=== PATIENT | male | born 1940 | race Caucasian/White ===

== ENCOUNTER → 2017-02-02 | Outpatient (CLI) | payer OTHER, MEDICARE | LOC: FIMAGING 11:55 | PROVIDERS: ATTEND Internal Medicine Geriatric Medicine | DX: M51.36 Other intervertebral disc degeneration, lumbar region (principal); M48.06 Spinal stenosis, lumbar region; M99.73 Connective tissue and disc stenosis of intervertebral foramina of lumbar region; R33.9 Retention of urine, unspecified ==

== ENCOUNTER 2017-02-16 05:43 | Inpatient (IN) | payer OTHER, MEDICARE ==
--- NOTE | 2017-02-16 05:57 | PDHPUP ---
History & Physical Update H&P update statement: This history and physical update is based on an assessment of the patient which was completed after admission or registration (within 24 hours), but prior to the surgery/procedure. H&P update: H&P reviewed & patient examined, no change in patient's condition since H&P completed
[2017-02-16] MEDS ORDERED: LR 1,000 ML IV ONE (06:22)
[2017-02-16] MEDS ORDERED: LIDOCAINE 1% 2 ML INJ ID PRN (06:22)
[2017-02-16] MEDS ORDERED: THROMBIN (BOVINE) 5,000 UNIT VIAL TP ONE (06:45)
[2017-02-16] MEDS ORDERED: BUPIVACAINE 0.25% 30 ML SDV ONE (06:45)
[2017-02-16] MEDS ORDERED: MIDAZOLAM 2 MG/2 ML VIAL ONE (06:46)
[2017-02-16] MEDS ORDERED: BACITRACIN 50,000 UNITS/10 ML SYR IRR ONE ×3 (06:47→11:06)
[2017-02-16] MEDS ORDERED: BUPIVACAINE/EPI 0.25% 30 ML SDV ONE (06:47)
[2017-02-16] MEDS ORDERED: MIDAZOLAM 2 MG/2 ML VIAL IVP ONE (06:49)
[2017-02-16] MEDS ORDERED: fentaNYL 100 MCG/2 ML INJ IVP PRN ×2 (06:51→12:00)
[2017-02-16] MEDS ORDERED: HYDROmorphONE/DILAUDID 1 MG/ML SYR IVP PRN ×2 (06:51→12:00)
[2017-02-16] MEDS ORDERED: LR 500 ML IV PRN ×2 (06:51→12:00)
[2017-02-16] MEDS ORDERED: ONDANSETRON 4 MG/2 ML VIAL IVP PRN ×3 (06:51→13:02)
[2017-02-16] MEDS ORDERED: ALBUTEROL 3 ML DEYVIAL IH PRN ×2 (06:51→12:00)
[2017-02-16] MEDS ORDERED: NALOXONE HCL 0.4 MG/ML INJ IVP PRN ×3 (06:51→13:02)
--- NOTE | 2017-02-16 06:51 | PDANEPAE ---
ANE History of Present Illness 76yo M for Lumbar Fusion ANE Past Medical History - Cardiovascular History Hx Hypertension: Yes Hx Arrhythmias: No Hx Chest Pain: No Hx Coronary Artery / Peripheral Vascular Disease: No Hx CHF / Valvular Disease: No Hx Palpitations: No - Pulmonary History Hx COPD: No Hx Asthma/Reactive Airway Disease: No Hx Recent Upper Respiratory Infection: No Hx Oxygen in Use at Home: No - Neurologic History Hx Cerebrovascular Accident: Yes Hx Seizures: No - Endocrine History Hx Diabetes: No - Renal History Hx Renal Disorders: Yes - Liver History Hx Hepatic Disorders: No - Neurological & Psychiatric Hx Hx Neurological and Psychiatric Disorders: No - Cancer History Hx Cancer: No - Congenital Disorder History Hx Congenital Disorders: No - GI History Hx Gastrointestinal Disorders: Yes - Chronic Pain History Chronic Pain: Yes (BACK) ANE Review of Systems Review of systems is: negative - Exercise capacity METS (RN): 4 METS ANE Patient History - Allergies Allergies/Adverse Reactions: codeine [Codeine] Allergy (Unknown, Verified 05/05/10 15:44) Vomiting - Home Medications Home Medications: Aspirin [Aspirin 81mg (*)] 81 mg PO DAILY 02/09/17 [Last Taken 02/06/17] Clopidogrel Bisulfate [Plavix (*)] 75 mg PO DAILY 02/09/17 [Last Taken 02/15/17] DULoxetine [Cymbalta 30 MG (*)] 30 mg PO BID@,02/09/17 [Last Taken 02/15/17 ] Diclofenac Sodium [Voltaren 75 MG (*)] 75 mg PO BID 02/09/17 [Last Taken ] Gabapentin [Neurontin 300 MG (*)] 300 mg PO BID@,02/09/17 [Last Taken 02/15] Gabapentin [Neurontin 300 MG (*)] 600 mg PO HS 02/09/17 [Last Taken 02/15/17] Losartan/Hydrochlorothiazide [Losartan-Hctz 100-25 Mg Tab] 1 each PO DAILY 02/09 [Last Taken 02/15/17] Multivitamins [Multivitamin (*)] 1 each PO DAILY 02/09/17 [Last Taken 02/14/17] Simvastatin [Zocor] 20 mg PO HS 02/09/17 [Last Taken 02/15/17] - NPO status NPO Since - Liquids (Date): 02/15/17 NPO Since - Liquids (Time): 22:30 NPO Since - Solids (Date): 02/15/17 NPO Since - Solids (Time): 14:00 - Smoking Hx Smoking Status: Never smoked - Family Anes Hx Family Hx Anesthesia Complications: DAUGHTER- VOMITING ANE Labs/Vital Signs - Vital Signs Blood Pressure: 144/83 Heart Rate: 70 Respiratory Rate: 16 O2 Sat (%): 92 Height: 177.8 cm Weight: 98.883 kg ANE Physical Exam - Airway Mallampati Score: Class 2 Mouth exam: normal dental/mouth exam, poor dentition - Pulmonary Pulmonary: no respiratory distress - Cardiovascular Cardiovascular: regular rate and rhythym - ASA Status ASA Status: II ANE Anesthesia Plan Anesthesia Plan: general endotracheal anesthesia
[2017-02-16] MEDS ORDERED: ceFAZolin 2 GM/DEXTROSE 100 ML IV ONE (06:58)
[2017-02-16] MEDS ORDERED: PROPOFOL/EMULSION 500 MG/50 ML BOTTLE IV ONE ×7 (06:59→11:15)
[2017-02-16] MEDS ORDERED: CEFAZOLIN 2 GM/DEXTROSE/100 ML BAG IV ONE (06:59)
[2017-02-16] MEDS ORDERED: REMIFENTANIL HCL 1 MG VIAL ONE ×6 (06:59→11:52)
[2017-02-16] MEDS ORDERED: CITRATE DEXTROSE SOLN 500 ML BAG ONE ×2 (07:00→10:05)
[2017-02-16] MEDS ORDERED: DEXAMETHASONE 4 MG/ML VIAL ONE ×2 (07:08)
[2017-02-16] MEDS ORDERED: HYDROmorphONE/DILAUDID 2 MG/ML INJ ONE (07:10)
[2017-02-16] MEDS ORDERED: epHEDrine SULFATE 10 MG/ML SYR ONE ×2 (07:59→08:22)
[2017-02-16] MEDS ORDERED: morphINE PF 5 MG/10 ML INJ IT ONE (08:00)
[2017-02-16] MEDS ORDERED: fentaNYL 100 MCG/2 ML INJ IT ONE (08:00)
[2017-02-16] MEDS ORDERED: ONDANSETRON 4 MG/2 ML VIAL ONE (08:32)
[2017-02-16] MEDS ORDERED: NON-FORMULARY NEW DRUG (Losartan/Hydrochlorothiazide [Losartan-Hctz 100-25 Mg Tab] 1 EACH) PO SCH (09:00)
[2017-02-16] MEDS ORDERED: ceFAZolin 1 GM VIAL ONE (11:26)
[2017-02-16] MEDS ORDERED: morphINE PF 10 MG/10 ML INJ ONE (11:39)
[2017-02-16] MEDS ORDERED: fentaNYL 100 MCG/2 ML INJ ONE ×2 (11:40→13:47)
[2017-02-16] MEDS ORDERED: DEXAMETHASONE 4 MG/ML VIAL IVP PRN (12:00)
[2017-02-16] MEDS ORDERED: ONDANSETRON DISINTEGRATING 4 MG TAB PO PRN (13:02)
[2017-02-16] MEDS ORDERED: MAGNESIUM HYDROXIDE 30 ML UDCUP PO PRN (13:02)
[2017-02-16] MEDS ORDERED: BISACODYL 10 MG SUPP PR PRN (13:02)
[2017-02-16] MEDS ORDERED: diphenhydrAMINE 25 MG CAP PO PRN (13:02)
[2017-02-16] MEDS ORDERED: LACTULOSE 20 GM/30 ML UDCUP PO PRN (13:02)
[2017-02-16] MEDS ORDERED: HYDROmorphONE/DILAUDID 6 MG/30 ML PCA IV PRN (13:02)
--- NOTE | 2017-02-16 13:03 | POSTANESTH ---
Post Anesthetic Evaluation Cardiovascular Status: Normal, Stable Respiratory Status: Normal, Stable Level of Consciousness/Mental Status: Can Participate in Eval, Alert and Oriented Pain Control: Adequate, Prn Tx Ordered Nausea/Vomiting Control: Adequate, Prn Tx Ordered Complications Possibly Related to Anesthesia: None Noted
--- NOTE | 2017-02-16 13:10 | SOAPPROG ---
SOAP Progress Note Assessment/Plan: Assessment: 76 yo M sp L1-S2 fusion Plan: stable to 3N PT/OT Roger Jacome to fit LSO brace please call with neuro changes 02/16/17 13:07 Subjective: + back pain, no leg pain Objective: Vital Signs Temp Pulse Resp BP Pulse Ox 36.7 C 70 16 144/83 H 92 02/16/17 06:24 02/16/17 06:51 02/16/17 06:51 02/16/17 06:51 02/16/17 06:51 Laboratory Results 02/16/17 07:30 awake, alert PERRL, no facial droop JESS x 4 + light touch ICD10 Worksheet Patient Problems: Problems Problem Status Onset Fusion of spine of lumbar region Acute - ICD10 Problem Qualifiers (1) Fusion of spine of lumbar region
[2017-02-16] MEDS ORDERED: HYDROmorphONE/DILAUDID 1 MG/ML SYR ONE (13:47)
[2017-02-16] MEDS: GABAPENTIN 300 MG CAP PO SCH ×3 (14:42→21:51)
[2017-02-16] MEDS: DULoxetine 30 MG CAP PO SCH ×2 (14:42→15:03)
[2017-02-16] MEDS: ACETAMINOPHEN 500 MG TAB PO SCH ×2 (15:03→21:50)
[2017-02-16] MEDS: ceFAZolin 2 GM/DEXTROSE 100 ML IV SCH ×2 (15:03→21:53)
[2017-02-16] MEDS: oxyCODONE IR 5 MG TAB PO PRN ×3 (15:10→21:50)
[2017-02-16] MEDS: METHOCARBAMOL 750 MG TAB PO PRN (15:10)
--- NOTE | 2017-02-16 16:27 | GOP ---
[f rep st] OPERATIVE REPORT DATE OF OPERATION: 02/16/2017 SURGEON: Freddy Rain MD TESTING TECH: ANASTASIA Escobar ANESTHESIA: General endotracheal. PREOPERATIVE DIAGNOSIS: Severe multilevel lumbar degenerative joint disease with severe spinal sten osis and lateral recess impingement, and loss of normal sagittal alignment. Intractable back pain a nd jkuds-rfkdobk-xqxd-left lower extremity radicular pain. Intractable neurogenic claudication. Fa iled conservative care. High risk surgical candidate given age of 76 years, comorbidities and requi red surgical intervention. POSTOPERATIVE DIAGNOSIS: Severe multilevel lumbar degenerative joint disease with severe spinal sonia nosis and lateral recess impingement, and loss of normal sagittal alignment. Intractable back pain and dkwst-medbrhu-yphn-left lower extremity radicular pain. Intractable neurogenic claudication. F katherine conservative care. High risk surgical candidate given age of 76 years, comorbidities and requ ired surgical intervention. PROCEDURE PERFORMED: Right-sided L2-3, L3-4, L4-5 and L5-S1 far lateral transpedicular decompressio n with L1 through S1 posterior segmental (pedicle screw and axial device) fixation and posterolatera l fusion with local autograft, bone morphogenic protein and morselized allograft. L2-3, L3-4, L4-5, and L5-S1 posterior/transforaminal lumbar interbody fusion with 2 structural PEEK interbody spacers , local autograft and bone morphogenic protein. Use of intraoperative microscopy, fluoroscopy and c [email or web address] volumetric stereotactic navigation with intraoperative neurophysiologic testing. Injection of intrathecal narcotic analgesics in subcutaneous and intramuscular tissues for local anesthesia fo r postoperative pain control. FINDINGS: ESTIMATED BLOOD LOSS: 500 cc. INDICATIONS: The patient is a 76-year-old man with intractable low back pain and yceah-cfsilgh-zhsh -left lower extremity radicular and neurogenic claudication symptoms secondary to multilevel severe degenerative joint disease, spinal stenosis, lateral recess impingement and loss of normal sagittal alignment. He has failed extensive conservative care and presents now for surgical decompression an d stabilization. DESCRIPTION OF PROCEDURE: After informed consent was obtained, the patient was taken to the operati ng room and placed in the prone position on the Mehul table. The thoracolumbosacral areas were pr epped and draped in sterile fashion. After fluoroscopic localization of the correct levels, the sub cutaneous and intramuscular tissues were infiltrated with local anesthesia. A midline linear incisi on was then created from approximately L2 to S1. This was carried down to the fascial layer, which was incised using monopolar electrocautery and carried in a subperiosteal plane along the spinous pr ocesses and lamina bilaterally. Intraoperative fluoroscopy was again utilized to verify the correct levels. Following this, the dissection was carried out over the facet joints. It was noted that t he L1-2 level had very large facets and looking at the MRI, I felt that the patient would likely be back for surgery in a very short period and thought that he did not need a decompression there, but it was probably in his best interest to extend the fusion up 1 level and do a posterolateral fusion there without any decompression or transforaminal approach. The dissection was therefore carried up to L1. Following this, the microscope was brought in and right-sided far lateral transpedicular decompressi ons were performed with complete unroofing of the facet joint and neural foramen at L2-3, L3-4, L4-5 , and L5-S1. Following adequate decompression, the [employer] Neuronavigational system was brought in and using computer volumetric stereotactic navigation, pedicle screws were placed bilaterally at L1, L2, L3, L4, L5 and S1. I also placed a screw on the right side at S2 in order to minimize the pote ntial for hardware pullout/failure at the lower level. Following this, individual short rods were p laced first at L5-S1, then at L4-5, then at L3-4, then at L2-3 with a slight amount of distraction a t each individual level serially. Diskectomies were performed at each level with complete removal o f the disk space in preparation of the endplates and placement of 2 structural PEEK interbody spacer s, local autograft and bone morphogenic protein at each level for L2-3, L3-4, L4-5, and L5-S1 paint tester ior/transforaminal lumbar interbody fusions. These small rods were then removed and appropriate-felicita gth rods extending from L1 to S2 on the right and L1 to S1 on the left were placed and secured with the maximal amount of lordosis in order to hopefully prevent or minimize flat back syndrome and othe r problems. A slight amount of compression was created across the interspaces with TLIF procedures in order to facilitate bony union and to minimize the potential for posterior graft migration. Following this, the wound was copiously irrigated with antibiotic irrigation. Meticulous hemostasis was achieved. The remaining lamina and facet joints primarily on the left were then extensively de corticated from L1 to S1, and on the right at L1-2 and the local autograft from the facetectomies al heather with bone morphogenic protein and morselized allograft was placed out laterally from L1 through S1 for posterolateral fusion. Axial device was then placed at the L1-2 level and L5-S1 levels in or carlos to, again, minimize the potential for hardware pullout and failure, as well as transitional/junc tional kyphosis. Then, 200 mcg of Duramorph along with 50 mcg of fentanyl was injected intrathecall y. The subcutaneous and intramuscular tissues were re-infiltrated with local anesthesia. A drain w as placed. The wound was closed in a layered fashion using interrupted Vicryl sutures followed by S renata-Strips on the skin. COMPLICATIONS: None. DISPOSITION: The patient was extubated and transferred to the recovery room in stable condition. /[id number]/MODL
[2017-02-16] MEDS: POLYETHYLENE GLYCOL 3350 17 GM PKT PO SCH ×2 (18:09→21:54)
[2017-02-16] MEDS ORDERED: NON-FORMULARY NEW DRUG (Simvastatin [Zocor] 20 MG) PO SCH ×2 (21:00)
[2017-02-16] MEDS: ATORVASTATIN CALCIUM 10 MG TAB PO SCH (21:49)
[2017-02-16] MEDS: FAMOTIDINE 20 MG TAB PO SCH (21:51)
[2017-02-16] MEDS: SENNOSIDES/DOCUSATE SODIUM TAB PO SCH (21:52)
[2017-02-16] MEDS: morphINE SR 30 MG TAB PO SCH (21:52)
[2017-02-17 04:45] LABS: ABSOLUTE IMMATURE GRANULOCYTES 0.18 10^3/uL (0.00-0.10); ADD DIFF? NO; ADD MORPH? NO; ADD SCAN? NO; ATYPICAL LYMPHOCYTE FLAG 0 (0-99); FRAGMENT RBC FLAG 0 (0-99); HEMATOCRIT 32.8 % (40.0-51.0); HEMOGLOBIN 11.4 g/dL (13.7-17.5); LEFT SHIFT FLG 0 (0-99); LIPEMIA HEMOLYSIS FLAG 90 (0-99); MEAN CELL HEMOGLOBIN 29.1 pg (27.9-34.1); MEAN CELL HEMOGLOBIN CONCENTR. 34.8 g/dL (32.4-36.7); MEAN CELL VOLUME 83.7 fL (81.5-99.8); MEAN PLATELET VOLUME 10.4 fL (8.7-11.7); PLATELET CLUMPS FLAG 0 (0-99); PLATELET COUNT 234 10^3/uL (150-400); RED BLOOD CELL COUNT 3.92 10^6/uL (4.40-6.38); RED CELL DISTRIBUTION WIDTH 11.6 % (11.5-15.2)
[2017-02-17 04:57] LABS: ANION GAP 8 mEq/L (8-16); CALCIUM 8.5 mg/dL (8.5-10.4); CARBON DIOXIDE 27 mEq/l (22-31); CHLORIDE 94 mEq/L (97-110); GLOMERULAR FILTRATION RATE > 60; GLUCOSE 140 mg/dL (70-100); POTASSIUM 4.8 mEq/L (3.5-5.2); SODIUM 129 mEq/L (134-144)
[2017-02-17] MEDS: ACETAMINOPHEN 500 MG TAB PO SCH ×3 (05:21→21:00)
[2017-02-17] MEDS: oxyCODONE IR 5 MG TAB PO PRN ×3 (07:20→13:18)
--- NOTE | 2017-02-17 08:41 | SOAPPROG ---
MINNA Progress Note Assessment/Plan: Assessment: POD#1 s/p L1-S1 PSF, L2-S1 TLIF Plan: - really doing well, tolerating oral pain meds - PT/OT, OOB today, probably will need rehab because his is disabled - CARLOS 985, will leave in place - lovenox for DVT ppx - will get xrays today to document hardware 02/17/17 08:38 Subjective: no major complaints, pain well controlled Objective: Vital Signs Temp Pulse Resp BP Pulse Ox 36.9 C 80 16 128/84 H 90 L 02/17/17 07:57 02/17/17 07:57 02/17/17 07:57 02/17/17 07:57 02/17/17 07:57 Laboratory Results 02/17/17 04:23 02/17/17 04:23 02/16/17 02/17/17 02/18/17 05:59 05:59 05:59 Intake Total 2450 Output Total 2735 Balance -285 AAOx3, strength full, sensation normal, dressings c/d/i - Pending Discharge Pending Discharge Within 24 Hours: No Pending Discharge Within 48 Hours: Yes Pending Discharge Date: 02/19/17 Pending Discharge Time: 11:00 ICD10 Worksheet Patient Problems: Problems Problem Status Onset Fusion of spine of lumbar region Acute
[2017-02-17] MEDS: POLYETHYLENE GLYCOL 3350 17 GM PKT PO SCH ×3 (09:07→21:03)
[2017-02-17] MEDS: LOSARTAN/HCTZ 50/12.5 1 TAB PO SCH (09:07)
[2017-02-17] MEDS: SENNOSIDES/DOCUSATE SODIUM TAB PO SCH ×2 (09:08→20:53)
[2017-02-17] MEDS: DULoxetine 30 MG CAP PO SCH ×2 (09:09→13:18)
[2017-02-17] MEDS: GABAPENTIN 300 MG CAP PO SCH ×3 (09:09→20:51)
[2017-02-17] MEDS: morphINE SR 30 MG TAB PO SCH ×2 (09:09→20:51)
[2017-02-17] MEDS: FAMOTIDINE 20 MG TAB PO SCH ×2 (09:09→20:52)
[2017-02-17] MEDS: ENOXAPARIN 40 MG/0.4 ML SYR SC SCH (09:09)
[2017-02-17] MEDS: NS 1,000 ML IV SCH (16:01)
[2017-02-17] MEDS: METHOCARBAMOL 750 MG TAB PO PRN (18:42)
[2017-02-17] MEDS: ATORVASTATIN CALCIUM 10 MG TAB PO SCH (21:01)
[2017-02-18] MEDS: oxyCODONE IR 5 MG TAB PO PRN ×3 (04:26→16:30)
[2017-02-18 05:25] LABS: ANION GAP 9 mEq/L (8-16); CALCIUM 8.6 mg/dL (8.5-10.4); CARBON DIOXIDE 27 mEq/l (22-31); CHLORIDE 94 mEq/L (97-110); CREATININE 0.9 mg/dL (0.7-1.3); GLOMERULAR FILTRATION RATE > 60; GLUCOSE 150 mg/dL (70-100); POTASSIUM 3.7 mEq/L (3.5-5.2); SODIUM 130 mEq/L (134-144)
[2017-02-18] MEDS: ACETAMINOPHEN 500 MG TAB PO SCH ×3 (05:53→20:50)
[2017-02-18] MEDS: ENOXAPARIN 40 MG/0.4 ML SYR SC SCH (08:23)
[2017-02-18] MEDS: DULoxetine 30 MG CAP PO SCH ×2 (08:25→14:09)
[2017-02-18] MEDS: morphINE SR 30 MG TAB PO SCH ×2 (08:25→20:51)
[2017-02-18] MEDS: GABAPENTIN 300 MG CAP PO SCH ×3 (08:25→20:51)
[2017-02-18] MEDS: POLYETHYLENE GLYCOL 3350 17 GM PKT PO SCH ×3 (08:26→20:52)
[2017-02-18] MEDS: SENNOSIDES/DOCUSATE SODIUM TAB PO SCH ×2 (08:26→20:52)
[2017-02-18] MEDS: FAMOTIDINE 20 MG TAB PO SCH ×2 (08:26→20:51)
[2017-02-18] MEDS: LOSARTAN/HCTZ 50/12.5 1 TAB PO SCH (08:33)
[2017-02-18] MEDS ORDERED: NS 1,000 ML IV ONE (09:56)
--- NOTE | 2017-02-18 09:56 | SOAPPROG ---
MINNA Progress Note Assessment/Plan: Assessment: POD#2 s/p L1-S1 PSF, L2-S1 TLIF Plan: - continues to do well but more pain today - became hypotensive yesterday with oxycodone, i suspect he was just hypovolemic , will give a fluid bolus again and would try oxycodone again today for pain, if not tolerating, we can try a different medication regimen - PT/OT, OOB today, probably will need rehab because his is disabled - mild hyponatremia - sodium 130, will repeat BMP tomorrow - CARLOS 110, will leave in place - lovenox for DVT ppx - xrays show intact hardware with good alignment 02/17/17 08:38 02/18/17 09:53 02/18/17 09:55 Subjective: c/o back pain, no leg pain Objective: Vital Signs Temp Pulse Resp BP Pulse Ox 36.8 C 71 16 102/67 98 02/18/17 07:53 02/18/17 07:53 02/18/17 07:53 02/18/17 07:53 02/18/17 07:53 Laboratory Results 02/17/17 04:23 02/18/17 04:21 02/17/17 02/18/17 02/19/17 05:59 05:59 05:59 Intake Total 2450 1600 300 Output Total 2735 510 300 Balance -285 1090 0 AAOx3, full strength/sensation, dressings c/d/i - Pending Discharge Pending Discharge Within 24 Hours: No Pending Discharge Within 48 Hours: Yes Pending Discharge Date: 02/20/17 Pending Discharge Time: 11:00 ICD10 Worksheet Patient Problems: Problems Problem Status Onset Fusion of spine of lumbar region Acute
[2017-02-18] MEDS: NS 1,000 ML IV SCH ×2 (11:30→20:49)
[2017-02-18] MEDS: ATORVASTATIN CALCIUM 10 MG TAB PO SCH (20:50)
[2017-02-19] MEDS: ACETAMINOPHEN 500 MG TAB PO SCH ×3 (04:54→21:31)
[2017-02-19] MEDS: oxyCODONE IR 5 MG TAB PO PRN ×3 (04:54→12:48)
[2017-02-19] MEDS: NS 1,000 ML IV SCH (04:54)
[2017-02-19 05:27] LABS: ANION GAP 5 mEq/L (8-16); CARBON DIOXIDE 29 mEq/l (22-31); CHLORIDE 98 mEq/L (97-110); CREATININE 0.9 mg/dL (0.7-1.3); GLOMERULAR FILTRATION RATE > 60; GLUCOSE 124 mg/dL (70-100); POTASSIUM 3.8 mEq/L (3.5-5.2); SODIUM 132 mEq/L (134-144)
[2017-02-19] MEDS: SENNOSIDES/DOCUSATE SODIUM TAB PO SCH ×2 (07:49→19:56)
[2017-02-19] MEDS: ENOXAPARIN 40 MG/0.4 ML SYR SC SCH (07:49)
[2017-02-19] MEDS: DULoxetine 30 MG CAP PO SCH ×2 (07:49→12:48)
[2017-02-19] MEDS: GABAPENTIN 300 MG CAP PO SCH ×3 (07:49→19:57)
[2017-02-19] MEDS: LOSARTAN/HCTZ 50/12.5 1 TAB PO SCH (07:50)
[2017-02-19] MEDS: FAMOTIDINE 20 MG TAB PO SCH ×2 (07:50→19:57)
[2017-02-19] MEDS: METHOCARBAMOL 750 MG TAB PO PRN (07:50)
[2017-02-19] MEDS: POLYETHYLENE GLYCOL 3350 17 GM PKT PO SCH ×3 (07:50→19:58)
[2017-02-19] MEDS: morphINE SR 30 MG TAB PO SCH ×2 (07:51→19:57)
--- NOTE | 2017-02-19 10:02 | NEUSURGPN ---
Date of Surgery: 02/16/17 Post Op Day: 3 Assessment/Plan: Assessment: POD#3 s/p L1-S1 PSF, L2-S1 TLIF Plan: - continues to do well, pain improved this am - PT/OT, OOB today -will consult for rehab eval today-patient wishes to go to rehab, is disabled - mild hyponatremia - sodium 132, trending up -will dc IV fluids, patient increasing PO fluids -will check na at 1400 today following dc IV fluids - CARLOS 425 out- will leave in place - lovenox for DVT ppx - xrays show intact hardware with good alignment Subjective: Patient has expected back pain, doing better today Objective: +lt touch BLE 5/5 BUE/BLE = Dressing CDI CARLOS-serous ang output/425cc Urinary Catheter in Place: No - Physician Patient Seen by : Briseyda Neurosurgery Physical Exam - Vitals, I&O, Labs I and O 02/18/17 02/19/17 02/20/17 05:59 05:59 05:59 Intake Total 1600 2350 Output Total 510 1425 Balance 1090 925 Intake: Oral (ml) 1150 IV Infused (ml) 1600 1200 Ns 1,000 ml @ 100 mls/hr 1600 1200 IV CONT MARCUS Rx#: [id number] Output: Urine (ml) 400 1000 Urinal 400 1000 CARLOS Drain Output (ml) 110 425 #1 Posterior Back Mehul 110 425 [place] Other: Intake Quantity Yes Sufficient Number of Voids Urinal 1 1 Vital Signs Temp Pulse Resp BP Pulse Ox 36.7 C 68 16 111/60 93 02/19/17 07:29 02/19/17 07:29 02/19/17 07:29 02/19/17 07:29 02/19/17 07:29 Laboratory Results 02/17/17 04:23 02/19/17 04:20 ICD10 Worksheet Patient Problems: Problems Problem Status Onset Fusion of spine of lumbar region Acute
[2017-02-19] MEDS: ATORVASTATIN CALCIUM 10 MG TAB PO SCH (19:57)
[2017-02-20] MEDS: ACETAMINOPHEN 500 MG TAB PO SCH ×3 (05:53→21:07)
[2017-02-20] MEDS: oxyCODONE IR 5 MG TAB PO PRN ×4 (05:53→21:05)
--- NOTE | 2017-02-20 08:09 | NEUSURGPN ---
Date of Surgery: 02/16/17 Post Op Day: 4 Assessment/Plan: Assessment: POD#3 s/p L1-S1 PSF, L2-S1 TLIF Plan: - Continues to do well, pain improved - Continue PT/OT -Plan for discharge to rehab tomorrow 02/21 -O2 requirements increasing, diminished lungs at bases per RN, will consult medicine -FIFI GONZALEZ today - lovenox for DVT ppx - xrays show intact hardware with good alignment Subjective: Patient feeling better today, pain improving, wants to go to rehab soon Objective: +lt touch BLE 5/5 BUE/BLE = Dressing CDI CARLOS-serous ang output/275cc 24 hrs Neuro Check Frequency: per routine Urinary Catheter in Place: No - Physician Discussed Patient with : Briseyda Patient Seen by : Briseyda Neurosurgery Physical Exam - Vitals, I&O, Labs I and O 02/19/17 02/20/17 02/21/17 05:59 05:59 05:59 Intake Total 2350 900 Output Total 1425 575 Balance 925 325 Intake: Oral (ml) 1150 900 IV Infused (ml) 1200 Ns 1,000 ml @ 100 mls/hr 1200 IV CONT MARCUS Rx#: [id number] Output: Urine (ml) 1000 300 Urinal 1000 300 CARLOS Drain Output (ml) 425 275 #1 Posterior Back Mehul 425 275 [place] Other: Number of Voids Toilet 1 Urinal 1 Vital Signs Temp Pulse Resp BP Pulse Ox 36.8 C 79 16 123/76 H 95 02/20/17 07:25 02/20/17 07:25 02/20/17 07:25 02/20/17 07:25 02/20/17 07:25 Laboratory Results 02/17/17 04:23 02/19/17 14:08 ICD10 Worksheet Patient Problems: Problems Problem Status Onset Fusion of spine of lumbar region Acute
[2017-02-20] MEDS: SENNOSIDES/DOCUSATE SODIUM TAB PO SCH ×2 (08:14→21:06)
[2017-02-20] MEDS: morphINE SR 30 MG TAB PO SCH (08:14)
[2017-02-20] MEDS: ENOXAPARIN 40 MG/0.4 ML SYR SC SCH (08:15)
[2017-02-20] MEDS: POLYETHYLENE GLYCOL 3350 17 GM PKT PO SCH ×3 (08:15→21:30)
[2017-02-20] MEDS: GABAPENTIN 300 MG CAP PO SCH ×3 (08:15→21:06)
[2017-02-20] MEDS: FAMOTIDINE 20 MG TAB PO SCH ×2 (08:15→21:07)
[2017-02-20] MEDS: LOSARTAN/HCTZ 50/12.5 1 TAB PO SCH (08:15)
[2017-02-20] MEDS: DULoxetine 30 MG CAP PO SCH ×2 (08:15→13:40)
[2017-02-20] MEDS: METHOCARBAMOL 750 MG TAB PO PRN ×2 (08:36→21:06)
--- NOTE | 2017-02-20 16:48 | ECHO ---
[id number] + + [address] : : [place] [address] : : [phone] + + Adult Echocardiographic Report + -------+ :Name: JUNE RHODES DStudy Date: 02/20/2017 02:53 PM : : Hospital Admission Number: [id number] Locati on: 348: :: 1940 Gender: Male Height: 70 in : :Age: 76 yrs Race: WH Weight: 218 lb : :Reason For Study: Heart murmur/hypoxemia : : BSA: 2.2 meter s2 : + -------+ MMode/2D Measurements \T\ Calculations LVIDd: 4.9 cm EDV(Teich): Ao root diam: LVLd ap4: 9.5 cm 112.5 ml 3.6 cm EDV(MOD-sp4): LA dimension: 100.0 ml 4.2 cm LVLs ap4: 7.3 cm ESV(MOD-sp4): 34.0 ml EF(MOD-sp4): 66.0 % SV(MOD-sp4): 66.0 ml Normal Measurement Values: + + :LVIDd (3.5-5.7cm) IVSd (0.6-1.1cm) LVPWd (0.6-1.1cm) Aortic Root (2.0-3.7cm)Left Atrium (1.5-4.0cm): :LV Vol(d) (76-115ml) LV Vol(s) (29-48ml) Ejec Fraction (50-65%)PV Cuong (0.6- 1.2m/s) TV Cuong (0.4-1.0m/s) : :MV E Cuong (0.8-1.0m/s)MV A Cuong (0.3-1.0m/s)LVOT Cuong (0.7-1.2m/s) Asc Ao Cuong ( 0.9-1.8m/s) : + + Doppler Measurements \T\ Calculations MV E max cuong: 89.3 cm/sec Ao mean P.4 mmHg MV A max cuong: 98.7 cm/sec Ao V2 mean: 120.2 cm/sec MV E/A: 0.90 Ao V2 VTI: 35.5 cm Left Ventricle The left ventricle is normal in size. There is mild concentric left ventricular hypertrophy. Left ventricular systolic function is normal. Ejection Fraction = 65-70%. No regional wall motion abnormalities noted. Right Ventricle The right ventricle is normal in size and function. Atria The left atrial size is normal. Right atrial size is normal. The atrial septum is aneurysmal. Mitral Valve The mitral valve is normal in structure and function. There is no evidence of mitral valve prolapse. There is no mitral valve stenosis. There is trace mitral regurgitation. Tricuspid Valve Normal tricuspid valve. There is mild tricuspid regurgitation. Aortic Valve The aortic valve is trileaflet. The aortic valve opens well. There is no aortic stenosis. There is no aortic insufficiency. Pulmonic Valve The pulmonic valve is normal in structure and function. There is no pulmonic valvular regurgitation. Great Vessels The aortic root is normal size. Pericardium/Pleural There is no pericardial effusion. There is a fat pad seen. Conclusion A complete two-dimensional transthoracic echocardiogram was performed (2D, M-mode, Doppler and color flow Doppler). Left ventricular systolic function is normal. There is mild concentric left ventricular hypertrophy. Ejection Fraction = 65-70%. The atrial septum is aneurysmal. There is trace mitral regurgitation. There is mild tricuspid regurgitation. There is a fat pad seen. Final Reading Physician: Jeremiah Gannon signed on 02/20/2017 04:47 PM Ordering Physician: Shivani Amador Performed By: Octavia Somers, [facility]
[2017-02-20] MEDS: ATORVASTATIN CALCIUM 10 MG TAB PO SCH (21:07)
[2017-02-20] MEDS: morphINE SR 15 MG TAB PO SCH (21:07)
--- NOTE | 2017-02-20 21:42 | GCON ---
[f rep st] CONSULTATION MEDICINE CONSULTATION DATE OF CONSULTATION: 02/20/2017 CONSULTING SERVICE: The Medicine team is asked by the Neurosurgical service to consult regarding hy poxemia. CHIEF COMPLAINT: Hypoxemia. HISTORY OF PRESENT ILLNESS: The patient is a 76-year-old male, with a history of chronic low back p ain, who recently underwent lumbar spinal fusion surgery, and has done well postoperatively, but as he nears discharge to the fpc facility, he is noted to be persistently hypoxemic. He is required up to 8 L of oxygen immediately postoperatively, although his oxygen requirement improved to around 3 L/minute, and he has mostly maintained this level of O2 requirements. He is currently a t 3.5 L/minute, with an oxygen saturation of 92%. He denies fevers, chills or cough. He has no krunal st pain or shortness of breath. In fact, he is lying flat on his back, and denies any orthopnea sym ptoms or paroxysmal nocturnal dyspnea. He denies pleuritic chest symptoms. Interestingly, he repor ts that at previous visits to his primary care office, his oxygen level was noted to be in the mid 8 0s on room air. He states he has not been started on home oxygen because usually after they get him to take several deep breaths, they can get his saturation over 90, and he has been discharged home. He has no known history of sleep apnea. He does report snoring at night, and endorses daytime gladys nolence. He states he believes he probably does need home oxygen. PAST MEDICAL HISTORY: 1. Chronic low back pain. 2. Hypertension. 3. Hyperlipidemia. PAST SURGICAL HISTORY: C4-5 fusion in 2009, and L1-S2 fusion in February 2017. MEDICATIONS: Please see [facility] [employer] for complete updated outpatient medication list. ALLERGIES: Include codeine, which causes nausea. FAMILY HISTORY: Positive for stroke. SOCIAL HISTORY: The patient denies alcohol or tobacco use. He lives independently with his , w ho is also suffering from chronic multiple medical problems. REVIEW OF SYSTEMS: A 10-point review of systems was performed and is negative, except as per HPI. OBJECTIVE: VITAL SIGNS: Temperature is 36.8, blood pressure 109/80, heart rate 93, respiratory rat e 16. He is 92% on 3.5 L oxygen by nasal cannula. GENERAL: The patient is awake, alert, and orien po, in no acute distress. HEENT: Head is atraumatic, normocephalic. Pupils equal, round, and jesus ctive to light. Extraocular muscles are intact. Oropharynx clear. Mucous membranes are moist. NE CK: Supple. There is no JVD. HEART: Regular rate and rhythm, with a 2/6 systolic ejection murmur heard over the entire precordium. LUNGS: Clear to auscultation bilaterally. ABDOMEN: Soft, obes e, nondistended, nontender, with normoactive bowel sounds. EXTREMITIES: Without cyanosis, clubbing or edema. He has SCDs on. NEUROLOGIC: Exam is grossly nonfocal. LABORATORY DATA: His sodium level has been followed, and has been in the low 130s. His blood sugar s have been 120s to 140s. NT-proBNP and D-dimer are pending. Postop lumbar spine x-ray is reviewed, which showed the L1-S2 fusion, with no visible complications. ASSESSMENT AND PLAN: The patient is a 76-year-old male, with a history of hypertension, hyperlipide alexa, obesity, and chronic pain, who is admitted to the hospital for lumbar spinal fusion surgery, an d Medicine team is consulted on postoperative day 4 for hypoxemia. 1. Acute hypoxemic respiratory failure. I actually suspect this is chronic, given his history of o xygen saturations in the 80s at outpatient primary care visits. Differential diagnosis includes und iagnosed sleep apnea versus opioid-induced hypoxemia, as the patient has been started on 60 mg of MS Contin daily, and, in addition, is receiving oxycodone. He was previously opioid naive. He appear s euvolemic, so I doubt volume overload or pulmonary edema as a cause. He has no fevers or chills t o suggest a pneumonia. We will go ahead and check a BNP, and a chest x-ray. I also considered pulm onary embolism, given his postop state, though he has been on prophylactic Lovenox. However, my anupama picion for PE is low, given his lack of symptoms. I do note his heart rate is up to the 90s, though , today. He reportedly desaturates to the low 80s, just decreasing his oxygen to 2 L/minute. We wi ll check a D-dimer, and if this is positive, we will likely proceed with a CTPA to rule out PE, thou gh, again, this is lower on my differential. He likely needs to be discharged on home oxygen, and w ill need an outpatient sleep study arranged to potentially diagnose and initiate treatment for sleep apnea. I am also going to decrease his MS Contin to 15 mg twice daily to see if this helps. 2. Heart murmur. He states his last echo was over 2 years ago, and mentions possibly a mitral valv e problem. We will repeat an echo here to reassess his valve, and evaluate for pulmonary hypertensi on or other causes of hypoxemia. 3. Chronic low back pain, status post L1-S2 fusion, postoperative day #4, managed postoperatively b y the Neurosurgery service. He seems to be doing well in his recovery. 4. Hyperlipidemia. He is continued on his statin. 5. Hypertension. He is continued on losartan/hydrochlorothiazide. 6. Hyponatremia. This is mild, and is improved from admission. His hydrochlorothiazide could be p laying a role in this, though he has been on that for a number of years. He has likely had poor cam[place] jeanne intake in his postop phase. 7. Code status. Patient is full code. 8. Deep venous thrombosis prophylaxis. Lovenox. 9. Disposition. We will continue inpatient status. The patient will transfer to a fpc facility possibly tomorrow. Again, will need arrangements for home oxygen prior to discharging dora infante /[id number]/MODL
[2017-02-21] MEDS: METHOCARBAMOL 750 MG TAB PO PRN (05:40)
[2017-02-21] MEDS: ACETAMINOPHEN 500 MG TAB PO SCH ×2 (05:40→15:14)
[2017-02-21] MEDS: oxyCODONE IR 5 MG TAB PO PRN (05:40)
[2017-02-21] MEDS: LOSARTAN/HCTZ 50/12.5 1 TAB PO SCH (08:09)
[2017-02-21] MEDS: FAMOTIDINE 20 MG TAB PO SCH (08:09)
[2017-02-21] MEDS: morphINE SR 15 MG TAB PO SCH (08:09)
[2017-02-21] MEDS: SENNOSIDES/DOCUSATE SODIUM TAB PO SCH (08:10)
[2017-02-21] MEDS: DULoxetine 30 MG CAP PO SCH ×2 (08:10→15:14)
[2017-02-21] MEDS: POLYETHYLENE GLYCOL 3350 17 GM PKT PO SCH ×2 (08:10→17:26)
[2017-02-21] MEDS: ENOXAPARIN 40 MG/0.4 ML SYR SC SCH (08:10)
[2017-02-21] MEDS: GABAPENTIN 300 MG CAP PO SCH ×2 (08:10→15:14)
[2017-02-21 11:57] VITALS: RESP 18
--- NOTE | 2017-02-21 12:44 | SOAPPROG ---
SOAP Progress Note Assessment/Plan: Assessment: 76 yo male POD #5 s/p L2-S1 TLIF intermittent confusion this AM per RN. Clear now ambulated hallway doing well overall Plan: DC to rehab today if medicine agrees Patient will need 2 liters of 02 for transport to rehab Change dressing 02/21/17 12:40 02/21/17 12:44 Subjective: awake, alert, pain well controlled he states his preop pain is 100% gone Objective: Vital Signs Temp Pulse Resp BP Pulse Ox 36.7 C 81 18 141/73 H 94 02/21/17 11:53 02/21/17 11:53 02/21/17 11:53 02/21/17 11:53 02/21/17 11:53 Laboratory Results 02/17/17 04:23 02/19/17 14:08 02/20/17 02/21/17 02/22/17 05:59 05:59 05:59 Intake Total 900 1070 Output Total 575 100 Balance 325 970 Neuro: TORIBIO, Sens +LT ambulated hallway with PT 5/5 bilat LE Dressing: CDI ICD10 Worksheet Patient Problems: Problems Problem Status Onset Fusion of spine of lumbar region Acute
--- NOTE | 2017-02-21 15:26 | HOSPPROG ---
Hospitalist Progress Note Assessment/Plan: Hypoxemia - likely chronic. CXR clear. Echo reassuring, though mild LVH noted. Suspect undiagnosed sleep apnea. Pt to dc to SNF on O2 and will likely need home O2 upon returning home. I've referred him to Pulmonology for outpt consult and sleep study. Chronic low back pain - s/p lumbar fusion surgery, managed by neurosurgery service. Hyponatremia - Na 131 at d/c. Recommend outpt PCP recheck this and consider d/c 'ing HCTZ if persists / worsens Hypertension - Adequately controlled, cont current therapy. F/U with PCP. Hyperlipidemia - cont statin Dispo - to SNF rehab today. Discussed with neurosurg team. Subjective: Pt feels well. Pain controlled. Denies CP or SOB. Agreeable to home O2 and outpt pulm f/u. Objective: Vital Signs Temp Pulse Resp BP Pulse Ox 36.7 C 81 18 141/73 H 94 02/21/17 11:53 02/21/17 11:53 02/21/17 11:53 02/21/17 11:53 02/21/17 11:53 Laboratory Results 02/17/17 04:23 02/19/17 14:08 02/20/17 02/21/17 02/22/17 05:59 05:59 05:59 Intake Total 900 1070 Output Total 575 100 Balance 325 970 - Physical Exam Constitutional: no apparent distress Eyes: PERRL Ears, Nose, Mouth, Throat: moist mucous membranes Cardiovascular: regular rate and rhythym, systolic murmur Respiratory: no respiratory distress, clear to auscultation Gastrointestinal: normoactive bowel sounds, soft, non-tender abdomen Skin: warm Musculoskeletal: full muscle strength Neurologic: AAOx3 Psychiatric: interacting appropriately ICD10 Worksheet Patient Problems: Problems Problem Status Onset Fusion of spine of lumbar region Acute
[2017-02-21 15:37] VITALS: BP 152/75; PULSE 74; TEMP 98.4; O2SAT 93
--- NOTE | 2017-02-21 15:47 | PDIAF ---
- Diagnosis Diagnosis: L1-S1 fusion with L2-S1 TLIF Code Status: Full Code - Medication Management Discharge Medications: Medications to Continue on Transfer Clopidogrel Bisulfate [Plavix (*)] 75 mg PO DAILY 02/09/17 [Last Taken 02/15/17] Gabapentin [Neurontin 300 MG (*)] 600 mg PO HS 02/09/17 [Last Taken 02/15/17] Multivitamins [Multivitamin (*)] 1 each PO DAILY 02/09/17 [Last Taken 02/14/17] Simvastatin [Zocor] 20 mg PO HS 02/09/17 [Last Taken 02/15/17] Acetaminophen [Tylenol ES 500 mg (*)] 1,000 mg PO Q8HRS #0 tab 02/21/17 [Last Taken Unknown] Atorvastatin Calcium [Lipitor 10 mg (*)] 10 mg PO HS #0 tab 02/21/17 [Last Taken Unknown] DULoxetine [Cymbalta 30 MG (*)] 30 mg PO BID@ #0 cap 02/21/17 [Last Taken Unknown] Losartan/Hctz 50/12.5 [Hyzaar 50/12.5MG (*)] 2 tab PO DAILY #0 tab 02/21/17 [ Last Taken Unknown] Methocarbamol [Robaxin 750 mg (*)] 750 mg PO QID PRN #60 tab 02/21/17 [Last Taken Unknown] Ondansetron Odt [Zofran Odt 4 mg (*)] 4 - 8 mg PO Q6HRS PRN #0 tab 02/21/17 [ Last Taken Unknown] Polyethylene Glycol 3350 [Miralax 17 gm (*)] 17 gm PO TID #0 pkt 02/21/17 [Last Taken Unknown] Sennosides/Docusate Sodium [Senokot-S] 1 - 2 tab PO BID #0 tab 02/21/17 [Last Taken Unknown] morphINE SR [Ms Contin/Oramorph 15 mg (*)] 15 mg PO BID #60 tab 02/21/17 [Last Taken Unknown] oxyCODONE IR [Oxycodone Ir (*)] 5 - 10 mg PO Q4HRS PRN #0 tab 02/21/17 [Last Taken Unknown] Discharge Medications: Refer to the Discharge Home Medication list for PRN reason. - Orders Services needed: Registered Nurse, Physical Therapy, Occupational Therapy Diet Recommendation: no restrictions on diet Diet Texture: Regular Texture Diet Wound Care Instructions: check incision daily. call [phone] with any drainage, redness or pain Equipment: LSO when out of bed - Follow Up Care Current Providers and Referrals: Karlene Resendez MD [Primary Care Provider] - Aly Montalvo MD [Medical Doctor] -
== END 2017-02-21 17:50 | DRG 460 ==
LOC: F3N 05:43
PROVIDERS: ADMIT Neurological Surgery; ATTEND Neurological Surgery
DX: M51.36 Other intervertebral disc degeneration, lumbar region (principal); J96.11 Chronic respiratory failure with hypoxia; G83.4 Cauda equina syndrome; E87.1 Hypo-osmolality and hyponatremia; I12.9 Hypertensive chronic kidney disease with stage 1 through stage 4 chronic kidney disease, or unspecified chronic kidney disease; N18.3 Chronic kidney disease, stage 3 (moderate); G89.29 Other chronic pain; E11.9 Type 2 diabetes mellitus without complications; E78.5 Hyperlipidemia, unspecified; E66.9 Obesity, unspecified; R01.1 Cardiac murmur, unspecified
CPT/HCPCS: 97116-GP; 97162-GP; 97166-GO; 97530-GP; 97535-GO; C1713; C1762; G8978-GP-CL; G8979-GP-CI; G8987-GO-CK; G8988-GO-CJ; J0690; J1100; J1170; J1650; J2250; J2274; J2405; J2704; J3010; J7060

== ENCOUNTER 2017-06-14 13:50 | Observation (INO) | payer OTHER, MEDICARE ==
[~2017-06-14 13:50] MED LIST: ACETAMINOPHEN 500 MG TAB PO ONE; ceFAZolin 2 GM/DEXTROSE 100 ML IV ONE
[2017-06-14] MEDS ORDERED: LR 1,000 ML IV ONE (14:49)
[2017-06-14] MEDS ORDERED: ACETAMINOPHEN 500 MG TAB ONE (14:49)
[2017-06-14] MEDS ORDERED: CEFAZOLIN 2 GM/DEXTROSE/100 ML BAG IV ONE (14:49)
[2017-06-14] MEDS ORDERED: CHLORHEXIDINE GLUC HIBICLENS 118 ML BTL TP ONE (16:42)
[2017-06-14] MEDS ORDERED: THROMBIN (BOVINE) 5,000 UNIT VIAL TP ONE (16:42)
[2017-06-14] MEDS ORDERED: BUPIVACAINE 0.25% 30 ML SDV ONE ×2 (16:42→18:08)
[2017-06-14] MEDS ORDERED: BACITRACIN 50,000 UNITS/10 ML SYR IRR ONE (16:43)
[2017-06-14] MEDS ORDERED: IOPAMIDOL (ISOVUE-M 300) 15 ML VIAL ONE (16:43)
--- NOTE | 2017-06-14 17:28 | PDANEPAE ---
ANE Past Medical History - Cardiovascular History Hx Hypertension: Yes Hx Arrhythmias: No Hx Chest Pain: No Hx Coronary Artery / Peripheral Vascular Disease: No Hx CHF / Valvular Disease: No Hx Palpitations: No Cardiovascular History Comment: MURMUR - ALL HIS LIFE - Pulmonary History Hx COPD: No Hx Asthma/Reactive Airway Disease: No Hx Recent Upper Respiratory Infection: No Hx Oxygen in Use at Home: No Hx Sleep Apnea: Yes Sleep Apnea Screening Result - Last Documented: Positive Pulmonary History Comment: DENIES SOB W STAIRS - Neurologic History Hx Cerebrovascular Accident: Yes Hx Seizures: No Neurologic History Comment: 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 NO RESIDUAL ISSUES - Endocrine History Hx Diabetes: No Endocrine History Comment: DX TYPE 2 DIABETES 3 Y AGO- LOST 20 LBS, DIET CHANGED , STOPPED ORAL MEDS LAST MAY 2014, HAS BEEN CLEARED FROM DX. LAST A1C 6.1 - Renal History Hx Renal Disorders: No Renal History Comment: RESIDUAL BLADDER ISSUES RELATED TO CURRENT BACK ISSUES - Liver History Hx Hepatic Disorders: No - Neurological & Psychiatric Hx Hx Neurological and Psychiatric Disorders: No Neurological / Psychiatric History Comment: ANXIETY RELATED TO SURGERY - Cancer History Hx Cancer: No - Congenital Disorder History Hx Congenital Disorders: No - GI History Hx Gastrointestinal Disorders: No Gastrointestinal History Comment: HX - SM POLYPS REMOVED - Other Health History Other Health History: OA - Chronic Pain History Chronic Pain: Yes (BACK) - Surgical History Prior Surgeries: FUSION L1 - S1. REMV RT THUMB CYST. C 5-7 FUSION '02. C 4-5 FUSION 2009 POST STROKE. MARIA ELENA CATARACTS W TORIC LENS '14. TUMOR REM R HAND ANE Review of Systems Review of Systems: - Exercise capacity METS (RN): 4 METS ANE Patient History - Allergies Allergies/Adverse Reactions: codeine [Codeine] Allergy (Unknown, Verified 05/05/10 15:44) Vomiting - Home Medications Home Medications: Clopidogrel Bisulfate [Plavix (*)] 75 mg PO DAILY 02/09/17 [Last Taken 1 Week Ago ~06/07/17] Gabapentin [Neurontin 300 MG (*)] 600 mg PO HS 02/09/17 [Last Taken 06/14/17 08: 00] Multivitamins [Multivitamin (*)] 1 each PO DAILY 02/09/17 [Last Taken 1 Week Ago ~06/07/17] Simvastatin [Zocor] 20 mg PO HS 02/09/17 [Last Taken 06/13/17 22:00] Aspirin 10/09/17 [Last Taken 1 Week Ago ~06/07/17] Diclofenac Sodium 06/11/17 [Last Taken 1 Week Ago ~06/07/17] - NPO status NPO Since - Liquids (Date): 06/14/17 NPO Since - Liquids (Time): 11:30 NPO Since - Solids (Date): 06/13/17 NPO Since - Solids (Time): 20:00 - Smoking Hx Smoking Status: Never smoked - Family Anes Hx Family Hx Anesthesia Complications: DAUGHTER- VOMITING ANE Labs/Vital Signs - Vital Signs Blood Pressure: 136/80 Heart Rate: 67 Respiratory Rate: 16 O2 Sat (%): 89 Height: 172.72 cm Weight: 102.058 kg ANE Physical Exam - Airway Neck exam: FROM Mallampati Score: Class 4 Mouth exam: normal dental/mouth exam - Pulmonary Pulmonary: no respiratory distress - Cardiovascular Cardiovascular: regular rate and rhythym - ASA Status ASA Status: III ANE Anesthesia Plan Anesthesia Plan: general endotracheal anesthesia
[2017-06-14] MEDS ORDERED: fentaNYL 100 MCG/2 ML INJ ONE (17:36)
[2017-06-14] MEDS ORDERED: MIDAZOLAM 2 MG/2 ML VIAL ONE (17:37)
[2017-06-14] MEDS ORDERED: PROPOFOL/EMULSION 500 MG/50 ML BOTTLE IV ONE (17:37)
[2017-06-14] MEDS ORDERED: REMIFENTANIL HCL 1 MG VIAL ONE (17:37)
[2017-06-14] MEDS ORDERED: ONDANSETRON 4 MG/2 ML VIAL ONE (17:38)
[2017-06-14] MEDS ORDERED: ROCURONIUM 100 MG/10 ML VIAL ONE (17:38)
[2017-06-14] MEDS ORDERED: LIDOCAINE 2% 100 MG/5 ML SYR ONE (17:38)
[2017-06-14] MEDS ORDERED: METHOCARBAMOL 750 MG TAB PO PRN (19:50)
[2017-06-14] MEDS ORDERED: ONDANSETRON 4 MG/2 ML VIAL IVP PRN ×2 (19:50→19:57)
[2017-06-14] MEDS ORDERED: MAGNESIUM HYDROXIDE 30 ML UDCUP PO PRN (19:50)
[2017-06-14] MEDS ORDERED: ONDANSETRON DISINTEGRATING 4 MG TAB PO PRN (19:50)
[2017-06-14] MEDS ORDERED: oxyCODONE IR 5 MG TAB PO PRN (19:50)
[2017-06-14] MEDS ORDERED: BISACODYL 10 MG SUPP PR PRN (19:50)
[2017-06-14] MEDS ORDERED: diphenhydrAMINE 25 MG CAP PO PRN (19:50)
[2017-06-14] MEDS ORDERED: LACTULOSE 20 GM/30 ML UDCUP PO PRN (19:50)
--- NOTE | 2017-06-14 19:56 | SOAPPROG ---
SOAP Progress Note Assessment/Plan: Assessment: 77 yo M sp L1 kyphoplasty Plan: stable PT/OT dc in am please call with neuro changes 06/14/17 19:54 Subjective: minimal back pain, no leg pain Objective: Vital Signs Temp Pulse Resp BP Pulse Ox 37.1 C 67 16 136/80 H 89 L 06/14/17 14:42 06/14/17 17:28 06/14/17 17:28 06/14/17 17:28 06/14/17 17:28 awake, alert PERRl, EOMI JESS x 4 + light touch ICD10 Worksheet Patient Problems: Problems Problem Status Onset Fusion of spine of lumbar region Acute
[2017-06-14] MEDS ORDERED: ALBUTEROL 3 ML DEYVIAL IH PRN (19:57)
[2017-06-14] MEDS ORDERED: NALOXONE HCL 0.4 MG/ML INJ IVP PRN (19:57)
[2017-06-14] MEDS ORDERED: fentaNYL 100 MCG/2 ML INJ IVP PRN (19:57)
[2017-06-14] MEDS ORDERED: ACETAMINOPHEN 500 MG TAB PO PRN (19:57)
--- NOTE | 2017-06-14 19:58 | POSTANESTH ---
Post Anesthetic Evaluation Cardiovascular Status: Similar to Pre-Op Cond Respiratory Status: Similar to Pre-op Cond. Level of Consciousness/Mental Status: Alert and Oriented Pain Control: Adequate, Prn Tx Ordered Nausea/Vomiting Control: Adequate, Prn Tx Ordered Complications Possibly Related to Anesthesia: None Noted
[2017-06-14] MEDS ORDERED: NS W/ 20 KCl/L 1,000 ML IV SCH (20:00)
[2017-06-14] MEDS: ACETAMINOPHEN 500 MG TAB PO SCH (21:47)
[2017-06-14] MEDS: POLYETHYLENE GLYCOL 3350 17 GM PKT PO SCH (21:48)
[2017-06-14] MEDS: SENNOSIDES/DOCUSATE SODIUM TAB PO SCH (21:48)
[2017-06-14] MEDS: FAMOTIDINE 20 MG TAB PO SCH (21:48)
--- NOTE | 2017-06-14 22:14 | GOP ---
[f rep st] OPERATIVE REPORT DATE OF OPERATION: 06/14/2017 SURGEON: Freddy Rain MD HEAD TURNING MACHINE OPERATOR: ANASTASIA Escobar ANESTHESIA: General endotracheal. PREOPERATIVE DIAGNOSIS: L1 vertebral compression fracture with hardware loosening, status post prior multilevel instrumentation and fusion. POSTOPERATIVE DIAGNOSIS: L1 vertebral compression fracture with hardware loosening, status post prio r multilevel instrumentation and fusion. PROCEDURE PERFORMED: Use of computer volumetric stereotactic navigation for L1 kyphoplasty/vertebrop lasty procedure. FINDINGS: ESTIMATED BLOOD LOSS: Trace. INDICATIONS: The patient is a 77-year-old man who is several months out from a multilevel lumbar ins trumentation and fusion with decompression who is doing extremely well but on his routine followup x- rays had an L1 fracture with hardware loosening, confirmed on a CT scan. He presents now for a kypho plasty/vertebroplasty procedure in an effort to prevent subsequent pain and further fracture. DESCRIPTION OF PROCEDURE: After informed consent was obtained, the patient was taken to the operatin g room and placed in the prone position on a Mehul table. The thoracolumbosacral areas were preppe d and draped in a sterile fashion. After fluoroscopic localization of the correct level, the subcuta neous and intramuscular tissues were infiltrated with local anesthesia. A midline linear incision wa s then created approximately 2 levels above the L1 level. This was carried down the spinous process, where an image-guidance frame was attached. The O-arm navigational system was brought in and 3-D re constructed images obtained. Using computer volumetric stereotactic navigation in conjunction with r eal-time fluoroscopy, the L1 pedicles were cannulated and a drill was inserted down to the anterior a spect of the vertebral body. Bone cement was then serially inserted through the trocars under real-t zhane biplanar image guidance. Approximately 3.5 cc of bone cement were inserted until the bone cement started to leak into the disk space and then the procedure was stopped and the trocars were removed. The wounds were copiously irrigated with antibiotic irrigation and closed in a layered fashion usin g interrupted Vicryl suture followed by Steri-Strips on the skin. COMPLICATIONS: None. DISPOSITION: The patient is currently in the process of being repositioned for extubation. /[id number]/MODL
[2017-06-15] MEDS: ceFAZolin 2 GM/DEXTROSE 100 ML IV SCH ×2 (02:26→10:28)
[2017-06-15] MEDS: ACETAMINOPHEN 500 MG TAB PO SCH (05:57)
[2017-06-15 07:53] VITALS: BP 105/67; PULSE 57; RESP 16; TEMP 98.5
[2017-06-15] MEDS: SENNOSIDES/DOCUSATE SODIUM TAB PO SCH (08:09)
[2017-06-15] MEDS: POLYETHYLENE GLYCOL 3350 17 GM PKT PO SCH (08:09)
[2017-06-15] MEDS ORDERED: traMADol 50 MG TAB PO PRN (08:18)
--- NOTE | 2017-06-15 08:22 | NEUSURGPN ---
Assessment/Plan: Assessment: 77 yo M sp L1 kyphoplasty -Optimize pain management -OOB as tolerated -Discharge planning -Dressing change with bandaids over steri-strips today. -Please notify NS with any change in neuro/motor exam Subjective: Low back pain, denies any leg pain numbness, tingling or weakness Objective: NAD A&Ox3 MAEx4 5/5 and equal in BUE and BLE. Incision c/d/i - Physician Patient Seen by : Brisey[facility] Neurosurgery Physical Exam - Vitals, I&O, Labs I and O 06/14/17 06/15/17 06/16/17 05:59 05:59 05:59 Intake Total 925 Output Total 10 Balance 915 Weight 102.058 kg Intake: Oral (ml) 25 IV Intake (ml) 900 Output: Estimated Blood Loss (ml) 10 Other: Number of Voids Toilet 2 Vital Signs Temp Pulse Resp BP Pulse Ox 36.9 C 57 L 16 105/67 96 06/15/17 07:49 06/15/17 07:49 06/15/17 07:49 06/15/17 07:49 06/15/17 07:49 ICD10 Worksheet Patient Problems: Problems Problem Status Onset Fusion of spine of lumbar region Acute
[2017-06-15] MEDS: FAMOTIDINE 20 MG TAB PO SCH (10:29)
[2017-06-15 11:18] VITALS: O2SAT 92
--- NOTE | 2017-06-15 14:27 | ASDISCHSUM ---
Discharge Information Plan Status:Home with No Needs Medically Cleared to Leave: Discharge Date:06/15/2017 12:46 PM CM D/C Disposition:Home, Routine, Self-Care ADT D/C Disposition:Home, Routine, Self-Care Projected Discharge Date:06/15/2017 12:46 PM Transportation at D/C: Discharge Delay Reason: Follow-Up Date:06/15/2017 12:46 PM Discharge Slot: Final Diagnosis: Placement Information Patient Contact Information Contact Name:STEVEN Relationship: Address:[address] [place] Work Phone: City:[place] Alternate Phone: [facility]/Zip Code:[place] [address] Email: Financial Information Financial Class:MC Primary Plan Desc:MEDICARE OUTPATIENT Primary Plan Number:[id number] Secondary Plan Desc:[employer]/MDR SUPPLEMENT Secondary Plan Number:[id number] Assessment Information Intervention Information
[2017-06-16] MEDS ORDERED: ENOXAPARIN 40 MG/0.4 ML SYR SC SCH (09:00)
== END 2017-06-15 12:46 | disposition home or self-care (01) ==
LOC: FSGY 13:50 → F3N 19:50
PROVIDERS: ADMIT Neurological Surgery; ATTEND Neurological Surgery
PROC: BR161ZZ Fluoroscopy of Lumbar Facet Joint(s) using Low Osmolar Contrast (ICD-10-PCS; principal; 2017-06-14 15:45)
PROC: 0QU03JZ Supplement Lumbar Vertebra with Synthetic Substitute, Percutaneous Approach (ICD-10-PCS; principal; 2017-06-14 15:45)
PROC: 4A10X4G Monitoring of Central Nervous Electrical Activity, Intraoperative, External Approach (ICD-10-PCS; principal; 2017-06-14 15:45)
DX: M84.48XA Pathological fracture, other site, initial encounter for fracture (principal); T84.226A Displacement of internal fixation device of vertebrae, initial encounter; M51.36 Other intervertebral disc degeneration, lumbar region; Z98.1 Arthrodesis status; N32.9 Bladder disorder, unspecified; E11.22 Type 2 diabetes mellitus with diabetic chronic kidney disease; I12.9 Hypertensive chronic kidney disease with stage 1 through stage 4 chronic kidney disease, or unspecified chronic kidney disease; Z86.73 Personal history of transient ischemic attack (TIA), and cerebral infarction without residual deficits; R01.1 Cardiac murmur, unspecified; N18.3 Chronic kidney disease, stage 3 (moderate); E78.5 Hyperlipidemia, unspecified
CPT/HCPCS: 22514; 72100; 76001; 97161; 97165; C1713; C1894; G8978; G8979; G8980; G8987; G8988; G8989; J0171; J0690; J2001; J2250; J2405; J2704; J3010; Q9967